=== PATIENT | male | born 1980 | race Caucasian/White ===

== ENCOUNTER 2018-08-21 15:23 | Emergency (ER) | payer OTHER ==
[~2018-08-21] VITALS: Ht 170.2 cm; Wt 73.6 kg
[2018-08-21 15:39] VITALS: BP 135/84; PULSE 96; RESP 20; Ht 170.2 cm; Wt 73.6 kg
[2018-08-21] MEDS ORDERED: KETOROLAC 30 MG INJ IM STA (19:40)
[2018-08-21] MEDS ORDERED: IBUP-1542 PO (23:09)
[2018-08-21] MEDS ORDERED: ACET500T98 PO (23:09)
--- NOTE | 2018-08-22 02:43 | ERD ---
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 The fall was about 40 minutes ago. He states that the pain on the right ankle is 6 out of 10. He also states that he has low back pain. He denies knee pain or hip pain. He denies head injury. Denies loss of consciousness. No nausea, vomiting noted. ROS All systems reviewed and are negative except as per history of present illness. Medications Home Meds Active Scripts Acetaminophen (Tylenol) 500 Mg Tab, 500 MG PO Q6H PRN for PAIN, #30 TAB Prov:SCAR DONOVAN DO 08/21/18 Ibuprofen* (Motrin*) 600 Mg Tab, 600 MG PO Q6H PRN for PAIN AND OR ELEVATED TEMP, #30 TAB Prov:SCAR DONOVAN DO 08/21/18 Allergies Allergies: Coded Allergies: No Known Drug Allergies (Verified Allergy, Unknown, 08/21/18) PMhx/Soc Medical and Surgical Hx: pt denies Medical Hx, pt denies Surgical Hx Hx Alcohol Use: No Hx Substance Use: No Hx Tobacco Use: No Smoking Status: Never smoker Physical Exam Vitals Vital Signs Date Temp Pulse Resp B/P (MAP) Pulse Ox O2 O2 Flow FiO2 Time Delivery Rate 08/21/18 97.6 96 20 135/84 100 15:39 (101) Physical Exam Const: No acute distress Resp: Clear to auscultation bilaterally Cardio: Regular rate and rhythm, no murmurs, bilateral dorsalis pedis pulses intact Abd: Soft, non tender, non distended. Normal bowel sounds Skin: No petechiae or rashes Back: Lumbar paravertebral muscle tenderness to palpation, there is no midline tenderness. Ext: Right ankle swelling noted, there is decreased range of motion. Tenderness palpation diffusely. Neur: Awake and alert, bilateral lower extremity sensation intact Psych: Normal Mood and Affect Results 24 hrs Current Medications Medications Dose Sig/Buck Start Time Status Last (Trade) Ordered Route PRN Stop Time Admin Dose Reason Admin Ketorolac 30 mg ONCE STAT 08/21/18 DC 08/21/18 Tromethamine IM 19:40 08/21/18 19:46 (Toradol) 19:43 Procedures/MDM Medical Decision Making: Differential diagnosis includes but not limited to right ankle fracture, dislocation, sprain. Patient appeared well on physical examination. Right ankle swelling noted on physical examination. Patient given Toradol in the ER for pain. Do the height of the fall, the joint below and above the injured site was imaged. Right ankle x-ray showed soft tissue prominence seen lateral to the lateral malleolus which could represent a sprain, otherwise, unremarkable right ankle series. Right foot x-ray unremarkable Right knee x-ray unremarkable Lumbar spine x-ray unremarkable Patient was put in Jamarcus wrap over the right ankle and provided with crutches. Patient advised that if his pain is not improved he may need to repeat images in about a week. Patient advised regarding elevation of the right ankle, ice for pain Patient was given prescription for Motrin and Tylenol. Patient advised to follow up with PCP in 1-2 days. Patient advised to return to ED for new or worsening symptoms. Patient stable on discharge from the ED. Disclaimer: Inadvertent spelling and grammatical errors are likely due to EHR/dictation software use and do not reflect on the overall quality of patient care. Also, please note that the electronic time recorded on this note does not necessarily reflect the actual time of the patient encounter. Departure Diagnosis: Primary Impression: Ankle injury Condition: Fair Patient Instructions: What Are Ankle Sprains?, Treating Ankle Sprains Referrals: [facility] YOU HAVE RECEIVED A MEDICAL SCREENING EXAM AND THE RESULTS INDICATE THAT YOU DO NOT HAVE A CONDITION THAT REQUIRES URGENT TREATMENT IN THE EMERGENCY DEPARTMENT. FURTHER EVALUATION AND TREATMENT OF YOUR CONDITION CAN WAIT UNTIL YOU ARE SEEN IN YOUR DOCTORS OFFICE WITHIN THE NEXT 1-2 DAYS. IT IS YOUR RESPONSIBILITY TO MAKE AN APPOINTMENT FOR FOLOW-UP CARE. IF YOU HAVE A PRIMARY DOCTOR --you should call your primary doctor and schedule an appointment IF YOU DO NOT HAVE A PRIMARY DOCTOR YOU CAN CALL OUR PHYSICIAN REFERRAL HOTLINE AT IF YOU CAN NOT AFFORD TO SEE A PHYSICIAN YOU CAN CHOSE FROM THE FOLLOWING [facility] [address] [facility] [address] [facility] [address] [facility] [address] [facility]. [facility] [address] [facility]. [facility] [address] Additional Instructions: Llame al doctor MAANA y luz marcus JULIA PARA DENTRO DE 1-2 MARTINES.Dgale a la secretaria que nosotros le instruimos hacer esta julia.Avise o llame si mario condicin se empeora antes de la julia. Regresa aqui si peor o no mejor. SCAR DONOVAN DO Aug 22, 2018 02:43
== END 2018-08-21 23:23 | disposition home or self-care (01) ==
LOC: FTE 15:23
DX: S99.911A Unspecified injury of right ankle, initial encounter (principal); W18.30XA Fall on same level, unspecified, initial encounter; Y92.89 Other specified places as the place of occurrence of the external cause
CPT/HCPCS: 72100; 73562; 73610; 73630; 96372; 99284; J1885